=== PATIENT | male | born 1960 | race Caucasian/White ===

== ENCOUNTER 2017-01-12 09:26 | Day surgery (SDC) | payer BC ==
[~2017-01-12] VITALS: Ht 182.9 cm; Wt 93.0 kg
[~2017-01-12 09:26] MED LIST: /ATOR40TA PO; /TAMS4CA; ASPI325T PO; BENI1TAB PO; CENT1TAB PO; CIAL2.5T PO; CORE20CA; EFFE150C PO; NEUR100C; PLAV75TA2 PO; SERT50TA PO; VENL75TA2 PO; ZETI10TA30 PO; [UNRECOGNIZED DRUG - OTHER]
[2017-01-12] MEDS ORDERED: NS 1,000 ML IV ONE (10:00)
[2017-01-12] MEDS ORDERED: PROPOFOL 200 MG/20 ML VIAL As Ordered ONE (11:09)
[2017-01-12] MEDS ORDERED: LIDOCAINE 2% INJ 100 MG/5 ML SDV (FOR ANES.) As Ordered ONE (11:09)
--- NOTE | 2017-01-12 11:34 | ROOR ---
Patient Name: Titi Gardner Procedure Date: 01/12/2017 11:00 AM Date of : 1960 Age: 57 Room: [facility] Gender: Male Note Status: Finalized Procedure: Colonoscopy Indications: Screening for colorectal malignant neoplasm Providers: Nick Andres MD Referring MD: CINDI MNCEIL MD Requesting Provider: Medicines: Monitored Anesthesia Care Complications: No immediate complications. Procedure: Pre-Anesthesia Assessment: - Prior to the procedure, a History and Physical was performed, and patient medications and allergies were reviewed. The patient is competent. The risks and benefits of the procedure and the sedation options and risks were discussed with the patient. All questions were answered and informed consent was obtained. Patient identification and proposed procedure were verified by the physician, the nurse and the machine heel sprayer in the procedure room. Mental Status Examination: alert and oriented. Airway Examination: normal oropharyngeal airway and neck mobility. Respiratory Examination: clear to auscultation. CV Examination: normal. Prophylactic Antibiotics: The patient does not require prophylactic antibiotics. Prior Anticoagulants: The patient has taken no previous anticoagulant or antiplatelet agents. ASA Grade Assessment: III - A patient with severe systemic disease. After reviewing the risks and benefits, the patient was deemed in satisfactory condition to undergo the procedure. The anesthesia plan was to use monitored anesthesia care (MAC). Immediately prior to administration of medications, the patient was re-assessed for adequacy to receive sedatives. The heart rate, respiratory rate, oxygen saturations, blood pressure, adequacy of pulmonary ventilation, and response to care were monitored throughout the procedure. The physical status of the patient was re-assessed after the procedure. The Colonoscope was introduced through the anus and advanced to the terminal ileum, with identification of the appendiceal orifice and IC valve. The colonoscopy was performed without difficulty. The patient tolerated the procedure well. The quality of the bowel preparation was good. The terminal ileum, ileocecal valve, appendiceal orifice, and rectum were photographed. Scope insertion time was 3 minutes. Scope withdrawal time was 10 minutes. The total duration of the procedure was 14 minutes. Findings: The perianal and digital rectal examinations were normal. A 3 mm polyp was found in the ascending colon. The polyp was sessile. The polyp was removed with a cold biopsy forceps. Resection and retrieval were complete. Verification of patient identification for the specimen was done by the physician and nurse using the patient's name, date and medical record number. Estimated blood loss was minimal. A 3 mm polyp was found in the rectum. The polyp was sessile. The polyp was removed with a cold biopsy forceps. Resection and retrieval were complete. A few small-mouthed diverticula were found in the sigmoid colon. There was no evidence of diverticular bleeding. External and internal hemorrhoids were found during retroflexion. The hemorrhoids were small. Impression: - One 3 mm polyp in the ascending colon, removed with a cold biopsy forceps. Resected and retrieved. - One 3 mm polyp in the rectum, removed with a cold biopsy forceps. Resected and retrieved. - Mild diverticulosis in the sigmoid colon. There was no evidence of diverticular bleeding. - External and internal hemorrhoids. Recommendation: - Patient has a contact number available for emergencies. The signs and symptoms of potential delayed complications were discussed with the patient. Return to normal activities tomorrow. Written discharge instructions were provided to the patient. - High fiber diet. - Continue present medications. - Await pathology results. - Repeat colonoscopy in 5 years for surveillance based on pathology results. - Return to GI clinic as previously scheduled on 01/20/2017 at 1:30 PM. - Return to primary care physician. Nick Andres MD Nick Andres MD 01/12/2017 11:34:15 AM This report has been signed electronically. Number of Addenda: 0 Note Initiated On: 01/12/2017 11:00 AM Estimated Blood Loss: Estimated blood loss was minimal.
[2017-01-12 11:55] VITALS: BP 159/75
== END 2017-01-12 12:01 | disposition home or self-care (01) ==
LOC: M OPP 09:26 → EDSTATUS 11:05 → M OPP 12:01
PROVIDERS: ATTEND Internal Medicine Gastroenterology
DX: Z12.11 Encounter for screening for malignant neoplasm of colon (principal); D12.2 Benign neoplasm of ascending colon; K62.1 Rectal polyp; K57.30 Diverticulosis of large intestine without perforation or abscess without bleeding; K64.4 Residual hemorrhoidal skin tags; K64.8 Other hemorrhoids; I10 Essential (primary) hypertension; E78.00 Pure hypercholesterolemia, unspecified; I34.1 Nonrheumatic mitral (valve) prolapse; M19.90 Unspecified osteoarthritis, unspecified site; F33.9 Major depressive disorder, recurrent, unspecified; J44.9 Chronic obstructive pulmonary disease, unspecified; G47.30 Sleep apnea, unspecified; F17.210 Nicotine dependence, cigarettes, uncomplicated; C67.9 Malignant neoplasm of bladder, unspecified; Z79.899 Other long term (current) drug therapy; Z79.82 Long term (current) use of aspirin; Z79.01 Long term (current) use of anticoagulants; Z88.5 Allergy status to narcotic agent; Z88.8 Allergy status to other drugs, medicaments and biological substances

== ENCOUNTER → 2017-06-02 | Outpatient (CLI) | payer BC | LOC: M SLEEP 19:53 | DX: G47.30 Sleep apnea, unspecified (principal) ==

== ENCOUNTER → 2017-06-02 | Outpatient (REF) | payer BC | LOC: M SMT 13:30 | DX: C67.9 Malignant neoplasm of bladder, unspecified (principal) | CPT/HCPCS: 88108 ==

== ENCOUNTER → 2017-07-15 | Outpatient (CLI) | payer BC | LOC: M SLEEP 19:47 | DX: G47.33 Obstructive sleep apnea (adult) (pediatric) (principal); G47.61 Periodic limb movement disorder | CPT/HCPCS: 95811 ==

== ENCOUNTER → 2018-01-04 | Outpatient (REF) | payer BC | LOC: M SMT 17:11 | DX: C67.9 Malignant neoplasm of bladder, unspecified (principal) | CPT/HCPCS: 88108 ==

== ENCOUNTER → 2018-08-01 | Outpatient (REF) | payer BC ==
[~2018-08-01] MED LIST changes: -/ATOR40TA PO; -/TAMS4CA; +ASPI-1 PO; -ASPI325T PO; -BENI1TAB PO; +BENI1TAB3 PO; +FLOM0.4C39; +LIPI1TAB2 PO; +SERT-141 PO; -SERT50TA PO
== END ==
LOC: M SMT 13:11
PROVIDERS: ATTEND Urology
DX: C67.9 Malignant neoplasm of bladder, unspecified (principal)

== ENCOUNTER 2018-08-31 06:02 | Day surgery (SDC) | payer BC ==
[~2018-08-31] VITALS: Ht 182.9 cm; Wt 93.9 kg
[~2018-08-31 06:02] MED LIST changes: +EFFE150C2 PO; +FLOM0.4C39 PO; +LIPI20TA PO; +PLAV1TAB2 PO; +TRIA25CR TOP; +mitoMYcin 40MG VIAL (J9280 PER 5MG) INTRAVESIC ONE
[2018-08-31] MEDS ORDERED: LR 1,000 ML IV ONE (07:00)
[2018-08-31] MEDS ORDERED: ASPI81TA85 PO (07:02)
[2018-08-31] MEDS ORDERED: PROPOFOL 200 MG/20 ML VIAL As Ordered ONE (07:17)
[2018-08-31] MEDS ORDERED: ROCURONIUM BROMIDE 50 MG/5 ML VIAL As Ordered ONE (07:17)
[2018-08-31] MEDS ORDERED: LIDOCAINE 2% INJ 100 MG/5 ML SDV (FOR ANES.) As Ordered ONE (07:17)
[2018-08-31] MEDS ORDERED: MIDAZOLAM INJ 2 MG/2 ML VIAL (J2250) As Ordered ONE (07:18)
[2018-08-31] MEDS ORDERED: fentaNYL 250 MCG/5 ML INJECTION (J3010) As Ordered ONE (07:18)
[2018-08-31] MEDS ORDERED: dexameTHASONE 4 MG/ML 1ML VIAL (J1100) As Ordered ONE (07:58)
[2018-08-31] MEDS ORDERED: SUGAMMADEX SODIUM 500 MG/5 ML VIAL (BRIDION) As Ordered ONE (07:58)
[2018-08-31] MEDS ORDERED: KETOROLAC 60 MG/2 ML VIAL (J1885) As Ordered ONE (07:58)
[2018-08-31] MEDS ORDERED: ONDANSETRON 4MG/2ML VIAL (J2405) As Ordered ONE (07:58)
[2018-08-31] MEDS ORDERED: METOCLOPRAMIDE INJ 10MG/2ML VIAL (J2765) IV PRN (09:15)
[2018-08-31] MEDS ORDERED: LR 1,000 ML IV SCH (09:15)
[2018-08-31] MEDS ORDERED: PROMETHAZINE INJ 25 MG/ML VIAL (J2550) IV PRN (09:15)
[2018-08-31] MEDS ORDERED: fentaNYL 100 MCG/2 ML INJECTION (J3010) IV PRN (09:15)
[2018-08-31] MEDS ORDERED: ACETAMINOPHEN TAB 650MG DOSE (2X325MG) PO PRN (09:15)
[2018-08-31 09:35] VITALS: BP 109/56
--- NOTE | 2018-08-31 10:43 | RO ---
DATE OF PROCEDURE: 08/31/2018 PREPROCEDURE DIAGNOSIS: Bladder cancer. POSTPROCEDURE DIAGNOSIS: Bladder cancer. PROCEDURE: Cystoscopy, transurethral resection of bladder tumor (less than 2 cm), intravesical mitomycin C instillation. SURGEON: Rafael Choudhury MD CERTIFIED FAMILY MEDIATOR: None. ANESTHESIA: General. INDICATION: This is a 58-year-old male with a history of low grade bladder cancer who on recent office cystoscopy was found to have likely recurrence of small tumors in the left lateral wall. He was brought to the operating room today for the above listed procedure. DESCRIPTION OF PROCEDURE: The patient was brought to the operating room and general anesthesia was induced. Prophylactic antibiotics were infused. He was then placed in the dorsal lithotomy position, prepped and draped in the usual sterile fashion. At this point, the resectoscope was inserted into the urethral meatus and advanced into the bladder using the visual obturator. The bladder was then thoroughly examined and on the left lateral/posterior wall, a collection of small papillary lesions were seen. These were completely resected using a loop. Once they were resected, all of the specimen was removed from the bladder to be sent for pathologic analysis. The base resection was then cauterized using the coagulation current. Once satisfied with hemostasis, the resectoscope was removed and an [address] catheter was inserted into the bladder. The balloon was filled with 30 mL of sterile water. The irrigation port was then hooked up to bag of irrigation, which was clamped, and then through the main outflow port mitomycin C 40 mg was instilled into the bladder gently. Once that was done, the catheter was plugged and this marked conclusion of the procedure. The patient was then taken out of dorsal lithotomy position, awakened from anesthesia, and transported to the recovery room in stable condition. ESTIMATED BLOOD LOSS: 5 mL. COMPLICATIONS: None. SPECIMENS: Bladder tumors. PLAN: The patient will follow-up in the clinic next week for pathology results and to have his catheter removed. MARGUERITE
== END 2018-08-31 12:02 | disposition home or self-care (01) ==
LOC: M SDC 06:02
PROVIDERS: ATTEND Urology
DX: C67.2 Malignant neoplasm of lateral wall of bladder (principal); I10 Essential (primary) hypertension; E78.5 Hyperlipidemia, unspecified; G47.30 Sleep apnea, unspecified; Z79.899 Other long term (current) drug therapy; F17.210 Nicotine dependence, cigarettes, uncomplicated; Z79.82 Long term (current) use of aspirin; Z79.02 Long term (current) use of antithrombotics/antiplatelets; Z88.8 Allergy status to other drugs, medicaments and biological substances; F32.9 Major depressive disorder, single episode, unspecified; J44.9 Chronic obstructive pulmonary disease, unspecified; N40.0 Benign prostatic hyperplasia without lower urinary tract symptoms
CPT/HCPCS: 51720; 52235; 88307; J0690; J1100; J1885; J2250; J2405; J3010; J9280

== ENCOUNTER → 2018-12-26 | Outpatient (REF) | payer BC ==
[~2018-12-26] MED LIST changes: +ASPI81TA85 PO; +ZETI10TA16 PO; -ZETI10TA30 PO; -mitoMYcin 40MG VIAL (J9280 PER 5MG) INTRAVESIC ONE
== END ==
LOC: M SMT 10:23
PROVIDERS: ATTEND Urology
DX: C67.9 Malignant neoplasm of bladder, unspecified (principal)